=== PATIENT | male | born 1965 | race Hispanic/Latino ===

== ENCOUNTER 2022-10-13 10:29 | Outpatient (CLI) | payer BC ==
[~2022-10-13 10:29] MED LIST: Iopamidol 300 61% 100 ML VIAL FS ONE
== END 2022-10-13 10:30 | disposition home or self-care (01) ==
LOC: CSHCT 10:29
PROVIDERS: ATTEND Family Medicine
DX: K11.1 Hypertrophy of salivary gland (principal); R22.0 Localized swelling, mass and lump, head
CPT/HCPCS: 70492